=== PATIENT | male | born 1980 | race Caucasian/White ===

== ENCOUNTER 2020-01-12 20:59 | Emergency (ER) | payer BC ==
[2020-01-12] MEDS ORDERED: Bacitracin Oint 1 GM U/D Packet TOP ONE (21:11)
--- NOTE | 2020-01-12 21:13 | EDM.PDOC ---
<Jayy Bianchi - Last Filed: 01/12/20 22:34> ED HPI GENERAL MEDICAL PROBLEM - General Chief Complaint: General Stated Complaint: HEAD INJURY Time Seen by Provider: 01/12/20 21:04 - History of Present Illness INITIAL COMMENTS - FREE TEXT/NARRATIVE: 2 - Related Data Allergies Allergy/AdvReac Type Severity Reaction Status Date / Time Penicillins Allergy Rash Verified 01/12/20 21:03 Home Meds: Home Meds Naproxen [Naprosyn] 500 mg PO Q12HR #10 tab 01/12/20 [Rx] ED ROS GENERAL - Review of Systems Review Of Systems: Comprehensive ROS is negative, except as noted in HPI. ED EXAM, GENERAL - Physical Exam Exam: See Below (see dictation) Course - Re-Assessments/Exams Free Text/Narrative Re-Assessment/Exam: 01/12/20 22:00 This patient was signed out to me at this time. I promptly performed a detailed physical examination, my examination was performed after ED treatments were initiated by the signout provider. Patient has been under the care of the previous provider up until this point. 01/12/20 22:36 After treatments and a prolonged observation period in the ER, the patient improved clinically and is stable for discharge. I performed a repeat examination and the patient has not demonstrated any new abnormal findings. Patient exhibits normal vital signs and has exhibited a normal gait. I advised the patient to return to the ER for reevaluation if symptoms worsened, and to follow up with their PCP within 2-3 days. Departure - Departure Time of Disposition: 22:35 Disposition: Home, Self-Care 01 Condition: Good Clinical Impression: Contusion Qualifiers: Encounter type: initial encounter Contusion area: head Contusion of head detail: scalp Qualified Code(s): S00.03XA - Contusion of scalp, initial encounter Fall Qualifiers: Encounter type: initial encounter Qualified Code(s): W19.XXXA - Unspecified fall, initial encounter Head injury Qualifiers: Encounter type: initial encounter Qualified Code(s): S09.90XA - Unspecified injury of head, initial encounter - Discharge Information *PRESCRIPTION DRUG MONITORING PROGRAM REVIEWED*: Not Applicable *COPY OF PRESCRIPTION DRUG MONITORING REPORT IN PATIENT KODY: Not Applicable Prescriptions: Naproxen [Naprosyn] 500 mg PO Q12HR #10 tab Instructions: Contusion, [id number] Referrals: Campbell Ruiz MD [Primary Care Provider] - 1 Week Forms: ED Department Discharge Additional Instructions: The following information is given to patients seen in the emergency department who are being discharged to home. This information is to outline your options for follow-up care. We provide all patients seen in our emergency department with a follow-up referral. The need for follow-up, as well as the timing and circumstances, are variable depending upon the specifics of your emergency department visit. If you don't have a primary care physician on staff, we will provide you with a referral. We always advise you to contact your personal physician following an emergency department visit to inform them of the circumstance of the visit and for follow-up with them and/or the need for any referrals to a consulting specialist. The emergency department will also refer you to a specialist when appropriate. This referral assures that you have the opportunity for follow-up care with a specialist. All of these measure are taken in an effort to provide you with optimal care, which includes your follow-up. Under all circumstances we always encourage you to contact your private physician who remains a resource for coordinating your care. When calling for follow-up care, please make the office aware that this follow-up is from your recent emergency room visit. If for any reason you are refused follow-up, please contact the [facility] Emergency Department at and asked to speak to the emergency department charge nurse. If you do not have a primary care doctor, please follow up with the clinics below within 3-5 days. [facility] [address] [place] [id number] [facility] [address] [place] [id number] <Mike Fuentes E - Last Filed: 01/16/20 10:04> ED HPI GENERAL MEDICAL PROBLEM - General Source of Information: Reports: Patient History Limitations: Reports: No Limitations - History of Present Illness INITIAL COMMENTS - FREE TEXT/NARRATIVE: HISTORY AND PHYSICAL: History of present illness: Patient is a 39-year-old male who presents to the emergency room with complaints of head, neck, right elbow and right hip pain post fall. He states fell off a trailer that was approximately 4 to 5 feet off the ground, when he fell landing on concrete. He states he hit the back of his scalp/head, right elbow and right hip. He denies any LOC. He reports initially he was not planning on coming in for evaluation but the friends that witnessed the event encouraged him to come in. He has a small abrasion to the right elbow. "Large goose egg" to the right posterior scalp. He denies any numbness, tingling, saddle paresthesia or weakness. He denies any urinary or fecal incontinence. He was ambulatory into the emergency room without any difficulty or deficits. Patient denies any fever, chills, headache, change in vision, syncope or near syncope. Denies any chest pain, back pain, shortness of breath or cough. Denies any GI or symptoms. Patient has been eating and drinking appropriately. Tetanus was updated in 2015. Review of systems: As per history of present illness and below otherwise all systems reviewed and negative. Past medical history: As per history of present illness and as reviewed below otherwise noncontributory. Surgical history: As per history of present illness and as reviewed below otherwise noncontributory. Social history: See social history for further information Family history: As per history of present illness and as reviewed below otherwise nonc ontributory. Physical exam: General: Well-developed and well-nourished 39-year-old male. Alert and oriented. Nontoxic-appearing and in no acute distress. C-collar was applied upon patient arrival. Vital signs are stable and have been reviewed by me. HEENT: Hematoma to posterior right scalp, tender to palpation. He is normocephalic, pupils equal and reactive bilaterally, negative for conjunctival pallor or scleral icterus, mucous membranes moist, teeth intact, no oral injury noted, TMs normal bilaterally, throat clear, neck supple, nontender, trachea midline. No drooling or trismus noted. No meningeal signs. No hot potato voice noted. Lungs: Clear to auscultation, breath sounds equal bilaterally, chest nontender. Heart: S1S2, regular rate and rhythm without overt murmur Abdomen: Soft, nondistended, nontender. Negative for masses or hepatosplenomegaly. Negative for costovertebral tenderness. Pelvis: Stable nontender. C-spine/Back: C-collar on and intact. No pinpoint vertebral tenderness upon palpation. No crepitus, step-offs or obvious deformities. Bilateral paraspinous muscular tenderness to the cervical spine. Patient is ambulatory into the emergency room without difficulty or deficit. Skin is intact. He is able to lift up on bilateral toes and push downward with equal force. Denies any urinary or fecal incontinence. Denies any numbness, tingling or saddle paresthesia. No concerns of serious infection, fracture or cord compression, or cauda equina syndrome. Deep tendon reflexes brisk bilaterally. Skin: Hematoma to posterior right scalp. Abrasion to right elbow. Intact, warm, dry. No lesions or rashes noted. Extremities: Pain with palpation over the right olecranon. He actively moves all extremities per self without difficulty or deficits, negative for cords or calf pain. Negative foot drop. + CMS to distal extremities both upper and lower bilaterally. Neurovascular unremarkable. Neuro: Awake, alert, oriented. Cranial nerves II through XII unremarkable. Cerebellum unremarkable. Motor and sensory unremarkable throughout. Exam nonfocal. Notes: Pain medication was offered to the patient, he currently declines. Patient is otherwise in good health and does not take any form of blood thinner or aspirins. Dr Bianchi was actively involved in this case and will assume care of patient at 2200, he will disposition appropriately. Diagnostics: Head CT, C-spine CT, chest x-ray, right elbow x-ray, right hip Therapeutics: Wound care, bacitracin, c-collar Impression: Fall Head Injury Contusion Definitive disposition and diagnosis as appropriate pending reevaluation and review of above. Right Elbow Pain Score (Numeric/FACES): 2 head Pain Score (Numeric/FACES): 3 pelvis Pain Score (Numeric/FACES): 3 Past Medical History - Past Health History Medical/Surgical History: Denies Medical/Surgical History Course - Vital Signs Last Recorded V/S: Last Vital Signs Temp 96.7 F L 01/12/20 21:03 Pulse 78 01/12/20 22:50 Resp 18 01/12/20 22:50 BP 128/78 01/12/20 22:50 Pulse Ox 98 01/12/20 22:50 - Orders/Labs/Meds Meds: Medications Discontinued Medications Generic Name Dose Route Start Last Admin Trade Name Freq PRN Reason Stop Dose Admin Bacitracin 1 dose 01/12/20 21:11 01/12/20 21:57 Bacitracin Oint 1 Gm TOP 01/12/20 21:12 1 dose ONETIME ONE Administration Sepsis Event Note (ED) - Evaluation Sepsis Screening Result: No Definite Risk
--- NOTE | 2020-01-12 22:00 | CT ---
Head CT Technique: Multiple axial sections through the brain were obtained. Intravenous contrast was not utilized. Comparison: No previous intracranial imaging is available. Findings: Ventricles along with basal cisterns and sulci the convexities are within normal limits for the patient's age. No abnormal parenchymal densities are seen. No evidence of intracranial hemorrhage. No midline shift or mass-effect is appreciated. Bone window settings were reviewed which shows a minimal retention cyst within the inferior left and right maxillary sinuses. No acute paranasal sinus findings are seen. No acute calvarial abnormality is appreciated. Impression: 1. Small retention cysts within both inferior maxillary sinuses. 2. Nothing acute is seen on noncontrast head CT study. Diagnostic code #2 This report was dictated in MDT
--- NOTE | 2020-01-12 22:01 | CR ---
Pelvis and right hip: AP view of the pelvis was obtained as well as AP and frog-leg lateral views of the right hip. Joint spaces within both hips are preserved. Sacroiliac joints appear within normal limits. No acute fracture or other bony abnormality is appreciated. Impression: 1. No abnormality is appreciated on 2 view right hip exam or on AP pelvis study. Diagnostic code #1 This report was dictated in MDT
--- NOTE | 2020-01-12 22:02 | CR ---
Right elbow: 3 views of the right elbow were obtained. Comparison: No previous study. Joint spaces are maintained. No fracture, dislocation or other bony abnormality is seen. Impression: 1. No acute bony abnormality is identified on right elbow study. Diagnostic code #1 This report was dictated in MDT
--- NOTE | 2020-01-12 22:04 | CR ---
Chest: Frontal view of the chest was obtained utilizing portable technique. Comparison: No prior chest x-rays available. Heart size and mediastinum are normal. Lungs are clear with no acute parenchymal change. Bony structures are unremarkable. Impression: 1. Nothing acute seen on frontal chest x-ray. Diagnostic code #1 This report was dictated in MDT
--- NOTE | 2020-01-12 22:06 | CT ---
CT cervical spine Technique: Multiple axial sections were obtained from above C1 inferiorly to the mid T2 level. Reconstructed sagittal and coronal images were reviewed. Findings: Vertebral body heights and disc spaces are maintained. Vertebral bodies and posterior arches are intact. No fracture is seen. Vertebral body heights and disc spaces are maintained. No bony central or bony neural foraminal stenosis is seen. No central canal stenosis is seen. No abnormal subluxation is seen. Impression: 1. Nothing acute is seen on CT study of the cervical spine. Diagnostic code #1 This report was dictated in MDT
[2020-01-12 22:53] VITALS: BP 128/78; PULSE 78
== END 2020-01-12 22:52 | disposition home or self-care (01) ==
LOC: MW.ED 20:59
DX: S00.03XA Contusion of scalp, initial encounter (principal); S50.311A Abrasion of right elbow, initial encounter; W17.89XA Other fall from one level to another, initial encounter
CPT/HCPCS: 70450; 70450-26; 71045; 71045-26; 72125; 72125-26; 73080-26-RT; 73080-RT; 73502-26-RT; 73502-RT; 99282; 99284-25